=== PATIENT | male | born 1970 | race Caucasian/White ===

== ENCOUNTER → 2021-09-08 | Outpatient (REF) | payer OTHER, MEDICAID ==
[2021-09-08 18:41] LABS: MALB URINE SIEMENS 18.2 MG/L
== END ==
LOC: M LAB REF 17:05
PROVIDERS: ATTEND Nurse Practitioner Family
DX: E11.65 Type 2 diabetes mellitus with hyperglycemia (principal)

== ENCOUNTER → 2023-06-21 | Outpatient (REF) | payer OTHER, MEDICAID ==
[2023-06-21 18:59] LABS: CREATININE, URINE 97.6 MG/DL; MAU/CREAT RATIO 19.4 MCG/MG (0.0-30.0)
== END ==
LOC: M LAB REF 16:58
PROVIDERS: ATTEND Nurse Practitioner Family
DX: E11.65 Type 2 diabetes mellitus with hyperglycemia (principal)